=== PATIENT | female | born 1960 | race Caucasian/White ===

== ENCOUNTER 2023-11-03 23:25 | Inpatient (IN) | payer MEDICARE, OTHER ==
[2023-11-03] MEDS: Sodium Chloride 0.9% 10 ML Syringe FLUSH PRN (23:40)
[2023-11-03] MEDS: Sodium Chloride 0.9% 2.5 ML Syringe FLUSH PRN (23:40)
[2023-11-04] MEDS: LORazepam 2 MG/ML SDV IVPUSH ONE (00:29)
[2023-11-04] MEDS: Iopamidol 755 MG/ML 500 ML Multipack Bottle IVPUSH ONE (00:35)
[2023-11-04 01:33] LABS: BASOPHILS ABSOLUTE AUTO 0.07 K/uL (0.00-0.20); BASOPHILS PERCENT AUTO 0.5 % (0.0-1.0); EOSINOPHILS PERCENT AUTO 0.7 % (0.0-6.0); HEMATOCRIT 40.1 % (37.0-47.0); HEMOGLOBIN 14.1 g/dL (12.0-16.0); IMMATURE GRAN ABSOLUTE AUTO 0.09 K/uL (0.00-0.05); IMMATURE GRAN PERCENT AUTO 0.6 % (0.0-0.4); LYMPHOCYTES PERCENT AUTO 12.8 % (24.0-44.0); MEAN CORPUSCULAR HEMOGLOBIN 30.6 pg (28.0-32.0); MEAN CORPUSCULAR HGB CONC 35.2 g/dL (32.0-36.0); MEAN PLATELET VOLUME 9.7 fL (9.4-12.3); MONOCYTES ABSOLUTE AUTO 0.66 K/uL (0.00-0.80); MONOCYTES PERCENT AUTO 4.5 % (0.0-8.0); NEUTROPHILS ABSOLUTE AUTO 11.97 K/uL (1.80-7.70); NEUTROPHILS PERCENT AUTO 80.9 % (41.0-71.0); PLATELET COUNT,PLT 212 K/uL (150-400); RED BLOOD CELL COUNT 4.61 M/uL (4.10-5.30); WHITE BLOOD CELL COUNT,WBC 14.79 K/uL (3.9-11.3)
[2023-11-04 01:53] LABS: INR 1.01 (0.86-1.11)
[2023-11-04 01:55] LABS: A/G RATIO 1.2 (0.9-1.6); ALANINE AMINOTRANSFERASE,ALT 18 IU/L (14-63); ALBUMIN 3.9 g/dL (3.4-5.0); ALKALINE PHOSPHATASE 87 U/L (46-116); ASPARTATE AMNIOTRANSFERASE,AST 14 IU/L (15-37); BILIRUBIN TOTAL 0.3 mg/dL (0.2-1.0); BLOOD UREA NITROGEN,BUN 9 mg/dL (7.0-18.0); CALCIUM 8.7 mg/dL (8.5-10.1); CARBON DIOXIDE,CO2 26.3 mmol/L (21.0-32.0); CHLORIDE,CL 101 mmol/L (98-107); CREATININE 0.7 mg/dL (0.6-1.0); ETHANOL BLOOD MEDICAL 165 mg/dL; GLUCOSE RANDOM 100 mg/dL (74-106); POTASSIUM,K 4.4 mmol/L (3.5-5.1); PROTEIN TOTAL,TP 7.2 g/dL (6.4-8.2); SODIUM,NA 139 mmol/L (136-145)
[2023-11-04 01:58] LABS: ESTIMATED GFR 97 mL/min (>60)
[2023-11-04 03:59] LABS: AMPHETAMINES SCREEN, URINE NEGATIVE (CUTOFF=500); BARBITURATE SCREEN,URINE NEGATIVE (CUTOFF=200); BENZODIAZEPINES SCREEN,URINE NEGATIVE (CUTOFF=150); BUPRENORPHINE SCREEN,URINE NEGATIVE (CUTOFF=10); METHADONE SCREEN, URINE NEGATIVE (CUTOFF=200); METHAMPHETAMINES SCREEN, URINE NEGATIVE (CUTOFF=500); OXYCODONE SCREEN,URINE NEGATIVE (CUT0FF=100); PCP SCREEN,URINE NEGATIVE (CUTOFF=25); THC SCREEN,URINE 20 NG/ML NEGATIVE (CUTOFF=50)
[2023-11-04] MEDS: Sodium Chloride 0.9% 1,000 ML IV ONE (04:48)
[2023-11-04] MEDS ORDERED: Ondansetron 4 MG/2 ML SDV IVPUSH PRN (09:31)
[2023-11-04] MEDS ORDERED: oxyCODONE 5 MG Tab PO PRN (09:31)
[2023-11-04] MEDS ORDERED: LORazepam 2 MG/ML SDV IVPUSH PRN (09:31)
[2023-11-04] MEDS ORDERED: Acetaminophen 325 MG Tab PO PRN (09:31)
[2023-11-04] MEDS ORDERED: Propofol 200 MG/20 ML SDV ONE (09:43)
[2023-11-04] MEDS ORDERED: Lidocaine 1% 5 ML VIAL ONE (09:44)
[2023-11-04] MEDS ORDERED: fentaNYL 100 MCG/2 ML SDV ONE (09:44)
[2023-11-04] MEDS ORDERED: dexmedeTOMIDine HCl 200 MCG/2 ML SDV ONE (09:44)
[2023-11-04] MEDS ORDERED: Rocuronium Bromide 50 MG/5 ML Syringe ONE (09:44)
[2023-11-04] MEDS ORDERED: Thiamine 100 MG in Sodium Chloride 0.9% 100 ML IV SCH (09:45)
[2023-11-04] MEDS: Sodium Chloride 0.9% 1,000 ML IV SCH (09:51)
[2023-11-04] MEDS: Thiamine 200 MG/2 ML MDV IVPUSH SCH (09:53)
[2023-11-04] MEDS ORDERED: Bupivacaine 0.5%/EPINEPHrine 1:200,000 30 ML SDV ONE ×2 (09:56→09:58)
[2023-11-04] MEDS: Pantoprazole 40 MG in Sodium Chloride 0.9% 10 ML IVPUSH SCH (09:57)
[2023-11-04] MEDS ORDERED: Bupivacaine 0.5% 30 ML SDV ONE (09:58)
[2023-11-04] MEDS: Folic Acid 1 MG/0.2 ML UD Syringe IV SCH (10:00)
[2023-11-04] MEDS ORDERED: Phenylephrine 1% 10 MG/ML SDV ONE (11:33)
[2023-11-04] MEDS ORDERED: Magnesium Sulfate (4.06 MEQ/ML) 5 GM/10 ML SDV ONE (11:36)
[2023-11-04] MEDS ORDERED: ceFAZolin 2 GM Vial ONE (11:41)
[2023-11-04] MEDS ORDERED: Dexamethasone 4 MG/ML 5 ML MDV ONE (12:03)
[2023-11-04] MEDS ORDERED: Ondansetron 4 MG/2 ML SDV ONE (12:03)
[2023-11-04] MEDS ORDERED: Phenylephrine HCl 0.5 MG/5 ML AMP ONE (12:28)
[2023-11-04] MEDS ORDERED: HYDROmorphone 2 MG/ML Syringe ONE (12:30)
[2023-11-04] MEDS ORDERED: Ketorolac 30 MG/ML SDV ONE (13:45)
[2023-11-04] MEDS ORDERED: Sugammadex Sodium 200 MG/2 ML VIAL IV ONE (13:45)
[2023-11-04] MEDS: Acetaminophen 325 MG Tab PO SCH (17:00)
[2023-11-04] MEDS: Ibuprofen 800 MG Tab PO SCH (20:16)
[2023-11-05 05:58] LABS: HEMATOCRIT 31.3 % (37.0-47.0); HEMOGLOBIN 11.2 g/dL (12.0-16.0); MEAN CORPUSCULAR HEMOGLOBIN 31.5 pg (28.0-32.0); MEAN CORPUSCULAR HGB CONC 35.8 g/dL (32.0-36.0); MEAN CORPUSCULAR VOLUME 88.2 fL (83.0-99.0); MEAN PLATELET VOLUME 10.5 fL (9.4-12.3); PLATELET COUNT,PLT 191 K/uL (150-400); RED BLOOD CELL COUNT 3.55 M/uL (4.10-5.30); WHITE BLOOD CELL COUNT,WBC 13.31 K/uL (3.9-11.3)
[2023-11-05 06:19] LABS: CALCIUM 8.2 mg/dL (8.5-10.1); CARBON DIOXIDE,CO2 25.9 mmol/L (21.0-32.0); CREATININE 0.8 mg/dL (0.6-1.0); EST CRCL DRUG DOSING (CG) 63.93 mL/min; POTASSIUM,K 4.8 mmol/L (3.5-5.1)
== END 2023-11-05 13:49 | disposition home or self-care (01) | DRG 494 ==
LOC: MW.ED 23:25 → MW.MS 11-04 07:49 → MERGE 11-04 07:49
PROVIDERS: ADMIT Internal Medicine; ATTEND Internal Medicine
PROC: 0PS904Z Reposition Right Clavicle with Internal Fixation Device, Open Approach (ICD-10-PCS; principal; 2023-11-04 09:55)
PROC: 0PSG04Z Reposition Left Humeral Shaft with Internal Fixation Device, Open Approach (ICD-10-PCS; 2023-11-04 09:55)
DX: S52.022A Displaced fracture of olecranon process without intraarticular extension of left ulna, initial encounter for closed fracture (principal); S42.031A Displaced fracture of lateral end of right clavicle, initial encounter for closed fracture; D72.829 Elevated white blood cell count, unspecified; Y90.6 Blood alcohol level of 120-199 mg/100 ml; V03.10XA Pedestrian on foot injured in collision with car, pick-up truck or van in traffic accident, initial encounter; Y92.410 Unspecified street and highway as the place of occurrence of the external cause; F10.129 Alcohol abuse with intoxication, unspecified; F17.210 Nicotine dependence, cigarettes, uncomplicated; V03.99XA Pedestrian with other conveyance injured in collision with car, pick-up truck or van, unspecified whether traffic or nontraffic accident, initial encounter
CPT/HCPCS: 36415; 70450; 71045; 71260; 72125; 73030; 73070; 74177; 80053; 80305; 80307; 85025; 85610; 86850; 86900; 86901; 93005; J2060; J3490; J7030; Q9967; 76000; 76000-26; 80048; 85027; 93010; 99285; A9270-GY; C9113; J0131; J0665; J0690; J1100; J1170; J1885; J2371; J2405; J2704; J3010; J3411; J3475

== ENCOUNTER 2024-01-31 21:56 | Emergency (ER) | payer OTHER ==
[2024-01-31] MEDS: Bupivacaine 0.5% 10 ML SDV INJECT ONE (22:54)
[2024-01-31] MEDS: Lidocaine 1% 5 ML VIAL INJECT ONE (22:54)
== END 2024-01-31 23:45 | disposition left against medical advice (07) ==
LOC: MW.ED 21:56
DX: M54.50 Low back pain, unspecified (principal); Z91.018 Allergy to other foods
CPT/HCPCS: 20552; 99283; J0665; J3490

== ENCOUNTER 2024-02-07 07:29 | Day surgery (SDC) | payer SELFPAY ==
[2024-02-07] MEDS ORDERED: dexmedeTOMIDine HCl 200 MCG/2 ML SDV ONE (07:41)
[2024-02-07] MEDS ORDERED: fentaNYL 100 MCG/2 ML SDV ONE (07:41)
[2024-02-07] MEDS ORDERED: Propofol 200 MG/20 ML SDV ONE (07:41)
[2024-02-07] MEDS ORDERED: Ketamine HCL/NACL, ISO-OSM 50 MG/5 ML Syringe ONE (07:41)
[2024-02-07] MEDS ORDERED: Rocuronium Bromide 50 MG/5 ML Syringe ONE (07:42)
[2024-02-07] MEDS ORDERED: Water For Injection, Sterile 20 ML ONE (07:42)
[2024-02-07] MEDS ORDERED: ceFAZolin 2 GM in Sodium Chloride 0.9% 50 ML IV ONE (08:00)
[2024-02-07] MEDS ORDERED: Bupivacaine 0.5%/EPINEPHrine 1:200,000 30 ML SDV ONE (08:00)
[2024-02-07] MEDS ORDERED: HYDROmorphone 1 MG/ML Syringe IVPUSH PRN (08:03)
[2024-02-07] MEDS ORDERED: Morphine 2 MG/ML SYRINGE IVPUSH PRN (08:03)
[2024-02-07] MEDS ORDERED: Ondansetron 4 MG/2 ML SDV IVPUSH PRN (08:03)
[2024-02-07] MEDS ORDERED: Albuterol 0.083% 2.5 MG/3 ML Neb Soln NEB PRN (08:03)
[2024-02-07] MEDS ORDERED: droPERidol 5 MG/2 ML SDV IVPUSH PRN (08:03)
[2024-02-07] MEDS ORDERED: fentaNYL 50 MCG/ML SDV IVPUSH PRN (08:03)
[2024-02-07] MEDS ORDERED: Naloxone 0.4 MG/ML SDV IVPUSH PRN (08:03)
[2024-02-07] MEDS ORDERED: Metoclopramide 10 MG/2 ML SDV IVPUSH PRN (08:03)
[2024-02-07] MEDS: Lactated Ringers 1,000 ML IV SCH (08:20)
[2024-02-07] MEDS ORDERED: Ondansetron 4 MG/2 ML SDV ONE (08:58)
[2024-02-07] MEDS ORDERED: Dexamethasone 4 MG/ML 5 ML MDV ONE (08:58)
[2024-02-07] MEDS ORDERED: ceFAZolin 2 GM Vial ONE (08:58)
[2024-02-07] MEDS ORDERED: Phenylephrine HCl In 0.9% NaCl 1 MG/10 ML Syringe ONE (09:00)
[2024-02-07] MEDS ORDERED: Magnesium Sulfate (4.06 MEQ/ML) 5 GM/10 ML SDV ONE (09:04)
[2024-02-07] MEDS ORDERED: ePHEDrine 50 MG/ML SDV ONE (09:09)
[2024-02-07] MEDS ORDERED: Sugammadex Sodium 200 MG/2 ML VIAL IV ONE (09:31)
[2024-02-07] MEDS ORDERED: Ketorolac 30 MG/ML SDV ONE (09:31)
== END 2024-02-07 11:25 | disposition home or self-care (01) ==
LOC: MW.SDS 07:29
PROVIDERS: ATTEND Orthopaedic Surgery
DX: T84.218A Breakdown (mechanical) of internal fixation device of other bones, initial encounter (principal); T84.228A Displacement of internal fixation device of other bones, initial encounter; F39 Unspecified mood [affective] disorder; F17.210 Nicotine dependence, cigarettes, uncomplicated; Z79.899 Other long term (current) drug therapy; Y83.1 Surgical operation with implant of artificial internal device as the cause of abnormal reaction of the patient, or of later complication, without mention of misadventure at the time of the procedure
CPT/HCPCS: 20680; 73000; J0131; J0690; J1100; J1885; J2371; J2405; J2704; J3010; J3475; J3490; J7120

== ENCOUNTER 2024-03-16 23:16 | Emergency (ER) | payer MEDICARE, OTHER ==
[2024-03-16] MEDS ORDERED: Sodium Chloride 0.9% 10 ML Syringe FLUSH PRN (23:17)
[2024-03-16] MEDS ORDERED: Sodium Chloride 0.9% 2.5 ML Syringe FLUSH PRN (23:17)
[2024-03-17] MEDS: Ibuprofen 600 MG Tab PO ONE (01:18)
== END 2024-03-17 01:20 | disposition home or self-care (01) ==
LOC: MW.ED 23:16
DX: M25.472 Effusion, left ankle (principal); Z91.018 Allergy to other foods; Z79.899 Other long term (current) drug therapy; Z75.8 Other problems related to medical facilities and other health care
CPT/HCPCS: 73600; 99283; A9270

== ENCOUNTER 2024-04-01 23:08 | Emergency (ER) | payer SELFPAY | END 2024-04-02 00:06 | disposition home or self-care (01) | LOC: MW.ED 23:08 | DX: R21 Rash and other nonspecific skin eruption (principal); F17.210 Nicotine dependence, cigarettes, uncomplicated; Z91.018 Allergy to other foods | CPT/HCPCS: 99281 ==

== ENCOUNTER 2024-04-24 07:01 | Observation (INO) | payer SELFPAY ==
[~2024-04-24 07:01] MED LIST: Albuterol 0.083% 2.5 MG/3 ML Neb Soln NEB PRN; HYDROmorphone 1 MG/ML Syringe IVPUSH PRN; Metoclopramide 10 MG/2 ML SDV IVPUSH PRN; Morphine 2 MG/ML SYRINGE IVPUSH PRN; Naloxone 0.4 MG/ML SDV IVPUSH PRN; Ondansetron 4 MG/2 ML SDV IVPUSH PRN; droPERidol 5 MG/2 ML SDV IVPUSH PRN; fentaNYL 50 MCG/ML SDV IVPUSH PRN
[2024-04-24] MEDS ORDERED: ceFAZolin 2 GM in Sodium Chloride 0.9% 50 ML IV ONE (08:00)
[2024-04-24] MEDS ORDERED: Scopalamine 1mg/3day Transdermal Patch TOP ONE (08:20)
[2024-04-24] MEDS ORDERED: Bupivacaine 0.5% 30 ML SDV ONE (10:51)
[2024-04-24] MEDS ORDERED: Midazolam 1 MG/ML 2 ML SDV ONE (10:55)
[2024-04-24] MEDS: Lactated Ringers 1,000 ML IV SCH (11:12)
[2024-04-24] MEDS ORDERED: propofoL 50 ML ONE (12:38)
[2024-04-24] MEDS ORDERED: ceFAZolin 2 GM Vial ONE (13:40)
[2024-04-24] MEDS ORDERED: Metoclopramide 10 MG/2 ML SDV ONE (13:40)
[2024-04-24] MEDS ORDERED: Ondansetron 4 MG/2 ML SDV ONE (13:42)
[2024-04-24] MEDS ORDERED: Sodium Chloride 0.9% 10 ML Syringe FLUSH PRN (14:51)
[2024-04-24] MEDS ORDERED: Sodium Chloride 0.9% 2.5 ML Syringe FLUSH PRN (14:51)
[2024-04-24] MEDS: Ibuprofen 600 MG Tab PO SCH (15:58)
[2024-04-24] MEDS: Acetaminophen 325 MG Tab PO SCH (17:18)
== END 2024-04-24 19:20 | disposition left against medical advice (07) ==
LOC: MW.SDS 07:01 → MW.MS 15:09
PROVIDERS: ADMIT Orthopaedic Surgery; ATTEND Orthopaedic Surgery
DX: T84.84XA Pain due to internal orthopedic prosthetic devices, implants and grafts, initial encounter (principal); F17.210 Nicotine dependence, cigarettes, uncomplicated; Z79.899 Other long term (current) drug therapy; Y83.1 Surgical operation with implant of artificial internal device as the cause of abnormal reaction of the patient, or of later complication, without mention of misadventure at the time of the procedure
CPT/HCPCS: 20680; 76000; A9270; J0665; J0690; J2405; J2704; J2765; J7120; 01740; 64415